=== PATIENT | female | born 1960 | race Caucasian/White ===

== ENCOUNTER → 2019-08-25 | Outpatient (CLI) | payer BC ==
[~2019-08-25] MED LIST: CONTRAST GIVEN. MC PRN; IOHEXOL 240 MG/ML 50ML VIAL. PO ONE; IOHEXOL 300 MG/ML 100ML VIAL. IV ONE
--- NOTE | 2019-08-25 09:51 | RAD ---
CT of the abdomen and pelvis with contrast 08/25/2019 9:46 AM Indication: Diverticulosis/diverticulitis. Comparison study: None Technique: Multidetector CT imaging of the abdomen and pelvis was performed following the administration of IV contrast. Findings: The partially visualized lung bases demonstrate no acute abnormality. The liver, gallbladder, spleen, bilateral adrenal glands, and pancreas, are grossly unremarkable. Likely peripelvic cysts noted involving the left kidney. Kidneys are otherwise unremarkable. There is no bowel obstruction. Colonic diverticulosis is noted. There is mild thickening and very minimal pericolonic inflammatory change involving the junction of the distal descending colon sigmoid colon. Findings suggest mild diverticulitis. Follow-up endoscopy is recommended to include underlying pathology/neoplasm. The appendix is visualized and unremarkable in appearance. Bladder is grossly unremarkable. No free fluid or free air is seen in the abdomen or pelvis. No acute osseous changes are identified. Impression: Mild thickening and very minimal pericolonic inflammatory change involving the junction of the distal descending colon sigmoid colon. Findings suggest mild diverticulitis. Follow-up endoscopy is recommended to include underlying pathology/neoplasm. CT DOSING PQRS STATEMENT: One or more of the following individualized dose reduction techniques were utilized for this examination: 1. Automated exposure control 2. Adjustment of the mA and/or kV according to patient size 3. Use of iterative reconstruction technique Electronically signed by: Tiago Onofre MD (08/25/2019 9:48 AM) [id number]
== END | disposition home or self-care (01) ==
LOC: CT 07:44
PROVIDERS: ATTEND Family Medicine
DX: K57.30 Diverticulosis of large intestine without perforation or abscess without bleeding (principal); Z90.710 Acquired absence of both cervix and uterus
CPT/HCPCS: 74177; Q9966; Q9967